=== PATIENT | female | born 1975 | race Caucasian/White ===

== ENCOUNTER 2018-11-16 05:02 | Emergency (ER) | payer SELFPAY ==
[~2018-11-16] VITALS: Ht 167.6 cm; Wt 68.0 kg
[2018-11-16] MEDS ORDERED: LORAZEPAM 2MG/ML CPJ IV ONE (05:45)
[2018-11-16] MEDS ORDERED: LEVETIRACETAM 500MG PREMIX 100 ML IV ONE (05:45)
[2018-11-16] MEDS ORDERED: DIPHENHYDRAMINE 50MG/ML VIAL IV ONE (06:00)
[2018-11-16] MEDS ORDERED: KETOROLAC 15MG/ML VIAL IV SCH (06:59)
[2018-11-16] MEDS ORDERED: KETOROLAC 30MG/ML VIAL IV ONE (07:00)
[2018-11-16 07:18] LABS: BASOPHILS % 0.8 % (0.0-2.0); EOSINOPHILS % 1.2 % (0.0-5.0); HEMATOCRIT. 39.1 % (36.0-48.0); HEMOGLOBIN. 13.4 g/dL (12.0-16.0); LYMPHOCYTES % 22.9 % (20.0-50.0); MEAN CORPUSCULAR HEMOGLOBIN 34.2 pg (28.0-32.0); MEAN CORPUSCULAR VOLUME 99.4 fL (81.0-99.0); MEAN PLATELET VOLUME 6.5 fl (7.4-10.4); MONOCYTES % 6.9 % (2.0-8.0); NEUTROPHILS % 68.2 % (40.0-76.0); PLATELET 418 x1000/uL (130-400); RED BLOOD CELL COUNT 3.93 mill/uL (4.2-5.4); RED CELL DISTRIBUTION WIDTH 12.9 % (11.6-14.6)
[2018-11-16 07:26] LABS: CHLORIDE 106 mEq/L (98-107)
[2018-11-16 07:37] LABS: HCG SCREEN NEGATIVE
[2018-11-16] MEDS ORDERED: IBUPROFEN 600MG TABLET PO ONE (08:15)
[2018-11-16 09:40] VITALS: BP 119/79
== END 2018-11-16 09:45 | disposition home or self-care (01) ==
LOC: ER 05:27 → EDBD 05:27 → ER 09:45
DX: G40.909 Epilepsy, unspecified, not intractable, without status epilepticus (principal); Z79.899 Other long term (current) drug therapy
CPT/HCPCS: 36415; 80053; 84703; 85025; 96365; 96375; 99283; J1200; J1885; J1953; J2060; Z7610